=== PATIENT | female | born 1975 | race Hispanic/Latino ===

== ENCOUNTER 2017-08-01 14:51 | Outpatient (CLI) | payer BC ==
--- NOTE | 2017-08-01 15:58 | RAD ---
RIGHT KNEE FOUR VIEWS: HISTORY: Right knee pain. FINDINGS: No fracture, dislocation, or bony destruction is seen. No joint effusion is identified. POS: [facility]
--- NOTE | 2017-08-01 15:58 | RAD ---
LEFT KNEE FOUR VIEWS: HISTORY: Left knee pain. FINDINGS: No fracture, dislocation, or bony destruction identified. No joint effusion seen. POS: [facility]
== END 2017-08-01 14:52 | disposition home or self-care (01) ==
LOC: RAD 14:51
PROVIDERS: ATTEND Family Medicine
DX: M25.561 Pain in right knee (principal); M25.562 Pain in left knee

== ENCOUNTER 2018-12-18 15:34 | Outpatient (CLI) | payer BC ==
--- NOTE | 2018-12-18 17:05 | MMO ---
Bilateral MAMMO Bilat Screen [facility]. CLINICAL HISTORY: Patient is 43 years old and is seen for screening. The patient has no family history of breast cancer. The patient has no personal history of cancer. VIEWS: The views performed were: bilateral craniocaudal with tomosynthesis and bilateral mediolateral oblique with tomosynthesis. This study has been interpreted with the assistance of computer-aided detection. MAMMOGRAM FINDINGS: The breasts are heterogeneously dense, which could obscure a lesion on mammography. There are calcifications seen in both breasts. There are no suspicious masses, suspicious calcifications, or new areas of architectural distortion. IMPRESSION: THERE IS NO MAMMOGRAPHIC EVIDENCE OF MALIGNANCY. A ROUTINE FOLLOW-UP MAMMOGRAM IN 1 YEAR IS RECOMMENDED. THE RESULTS OF THIS EXAM WERE SENT TO THE PATIENT. ACR BI-RADS Category 2 - Benign finding MAMMOGRAPHY NOTE: 1. A negative mammogram report should not delay a biopsy if a dominant of clinically suspicious mass is present. 2. Approximately 10% to 15% of breast cancers are not detected by mammography. 3. Adenosis and dense breasts may obscure an underlying neoplasm. Reported by: YON REYES MD Electonically Signed: [id number]
== END 2018-12-18 15:35 | disposition home or self-care (01) ==
LOC: BICMAMMO 15:34
PROVIDERS: ATTEND Family Medicine
DX: Z12.31 Encounter for screening mammogram for malignant neoplasm of breast (principal)
CPT/HCPCS: 77063; 77067

== ENCOUNTER 2019-01-15 08:10 | Outpatient (CLI) | payer BC ==
--- NOTE | 2019-01-15 10:18 | ULT ---
ULTRASOUND ABDOMEN LIMITED: (RIGHT UPPER QUADRANT) DATE: 01/15/19 HISTORY: Elevated liver enzymes in 43-year-old female. FINDINGS: The gallbladder has normal wall thickness and has no evidence of gallstones or sludge. The hepatic e chogenicity is normal. The right kidney has normal echogenicity and has no hydronephrosis. The panc reas is visualized, although ultrasound is relatively insensitive for pancreatic pathology compared t o CT and MRI. There is no biliary dilation. The common duct caliber is 4 mm. IMPRESSION: Normal. abigail [] POS: [facility]
== END 2019-01-15 08:11 | disposition home or self-care (01) ==
LOC: BICULT 08:10
PROVIDERS: ATTEND Family Medicine
DX: R74.8 Abnormal levels of other serum enzymes (principal)
CPT/HCPCS: 76705

== ENCOUNTER 2019-02-09 15:04 | Outpatient (CLI) | payer BC ==
[~2019-02-09 15:04] MED LIST: Magnevist 469MG/ML 20 ML VIAL ONE
--- NOTE | 2019-02-09 16:18 | MRI ---
MRI Brain W WO Con History: M [age] hand muscle weakness Comparison: None. Findings: On the diffusion weighted imaging sequence there are no abnormal foci of diffusion restrict ion. This is confirmed on the ADC map. On the susceptibility weighted imaging sequence there are no abnormal foci of hemorrhage. [place] flow voids are maintained. No midline shift. No mass effect. No significant microangiopathic changes. No abnormal intra-axial or extra-axial enhancement. No abnormal leptomeningeal or pachymeningeal enha ncement. Impression: Normal MRI examination.
== END 2019-02-09 15:05 | disposition home or self-care (01) ==
LOC: BICMRI 15:04
PROVIDERS: ATTEND Family Medicine
DX: R76.8 Other specified abnormal immunological findings in serum (principal); M62.81 Muscle weakness (generalized); D89.2 Hypergammaglobulinemia, unspecified
CPT/HCPCS: 70553; A9579